=== PATIENT | male | born 1960 | race Caucasian/White ===

== ENCOUNTER 2021-12-07 10:18 | Emergency (ER) | payer OTHER ==
--- OUTSIDE RECORDS SUMMARY | 2021-12-07 10:21 | XMS REPORT | Continuity of Care Document ---
:[address] [facility] Address [address] [place] [address] [address]. [address] [place] [address] Care Team Providers Name Role Phone Otto Mendoza MD Attending Clinician Pcp, Patient Does Not Have A Attending Clinician [phone] Lab, Adc Fam Pob I Attending Clinician Unavailable Guadalupe Green Attending Clinician GUADALUPE CLANCY Attending Clinician Unavailable Caitlin Pa Attending Clinician Leodan Hu PA-C Attending Clinician LEODAN HU Attending Clinician Unavailable Mile Hardy Attending Clinician MILE FARMER Attending Clinician Unavailable Payers Payer Name Policy Type Policy Number Effective Date Expiration Date S ource Problems Condition Condition Condition Status Onset Resolution Last Treating Co mments Source Name Details Category Date Date Treatment Clinician Date Mixed Mixed Disease Active Univers hyperlipid hyperlipid 2-11 it y of emia emia 00:00: [place] 00 [facility] Allergies, Adverse Reactions, Alerts Allergy Allergy Status Severity Reaction(s) Onset Inactive Treating Comm ents Source Name Type Date Date Clinician NO KNOWN Drug Active Univers ALLERGIE Class ity of S [facility] Social History Social Habit Start Date Stop Date Quantity Comments Source Sex Assigned At Uni versity [facility] Exposure to SARS-CoV-2 Yes Un iversity [facility] (event) [facility] Smoking Status Start Date Stop Date Source Unknown if ever smoked Universit y of [facility] Medications Ordered Filled Start Stop Current Ordering Indication Dosage Frequency Signature Comments Components Source Medication Medication Date Date Medication? Clinician (SIG) Name Name omeprazole 2019-02- No TAKE 1 Univ ers 40 mg 03-28 CAPSULE BY ity of capsule 00:00: 00:00 MOUTH ONCE Mickey as 00 :00 DAILY 30 Medical MINUTES Branch BEFORE MORNING MEAL No known No [facility] No [facility] No known No [facility] No known No [facility] No known No Univers medications [facility] Vital Signs Vital Name Observation Time Observation Value Comments Source Systolic blood 2020-03-29 00:41:00 145 mm[Hg] Univer sity [facility] Diastolic blood 2020-03-29 00:41:00 95 mm[facility]Hg[facility] 2020-03-29 00:41:00 75 /min [facility] Body temperature 2020-03-29 00:41:00 36.67 [facility]a [facility] Body height 2020-03-29 00:41:00 157.5 cm [facility] Body weight 2020-03-29 00:41:00 88.451 kg [facility] BMI 2020-03-29 00:41:00 35.67 kg/m2 [facility] Oxygen saturation in 2020-03-29 00:41:00 98 /min [facility] Arterial blood by [facility] Pulse oximetry [place] Procedures Procedure Date / Time Performed Performing Clinician Sour e POCT FLU A AND B 2020-03-28 00:00:00 Caitlin Forrester [facility] (MOLECULAR) [facility] COVID-19 (PCR 2019-08-24 22:29:00 [facility] [place] [facility] Medical Bran h Encounters Start End Encounter Admission Attending Care Care Encounter Source Date/Time Date/Time Type Type Clinicians Facility Department ID 2020-04-14 2020-04-14 Letter LEODAN Mendoza [id number] Univers 00:00:00 00:00:00 (Out) Otto MILLS [id number] i ty of [facility] [id number] Mickey as [phone] [facility] 019 Branch 2020-04-12 2020-04-12 Telephone Pcp, TONJA [id number] Univers 00:00:00 00:00:00 Patient Health [id number] it y of Does Not [place].2.686 [place] Professio [phone] [facility] nal [address] [place] [address] Office [facility] 2020-04-11 2020-04-11 Laboratory Lab, Adc Fam Pob I [facility] [id number] Univers 13:40:01 14:00:01 Only Guadalupe Clancy Health [id number] ity of [place] [id number] Mickey as Professio [phone] [facility] nal [address] [place] [address] Office [facility] 2020-04-11 2020-04-11 Outpatient R FRANCESCO [facility] [id number] Univers 13:40:00 13:40:00 GUADALUPE [facility] 2020-03-30 2020-03-30 Telephone LEODAN Garibay [id number] Univers 00:00:00 00:00:00 Patient GENE [id number] it y of Does Not HOSPITAL 4[place]2.7.2.686 [place] [phone] [address] 2020-03-30 2020-03-30 Telephone Usama [facility] [id number] Univers 00:00:00 00:00:00 [facility] [id number] ity of [place] [id number] Mickey as Professio [phone] [facility] [address] [place] [address] Office [facility] 2020-03-28 2020-03-28 Urgent UsamaCaitlin arnold [facility] [id number] Univers 18:36:04 19:23:55 Leodan Bucio [facility] [id number] ity of [place] 4.2.7.2.686 Mickey as Professio [phone] [facility] nal [address] [place] [address] Office [facility] 2020-03-28 2020-03-28 Outpatient R MIRTHA [facility] [id number] Univers 18:40:00 18:40:00 LEODAN [facility] 2019-08-24 2019-08-27 Laboratory Lab, Adc Fam Pob I [facility] [id number] [facility] 17:29:14 14:39:41 Only Mile Farmer [facility] [id number] [facility] [id number] Mickey as Nevaehio [phone] Ia [facility] [address] [place] [address] One 2019-08-24 2019-08-24 Outpatient R MARLENY [facility] [id number] [facility] 17:40:00 17:40:00 MILE [facility] Results Test Description Test Time Test Comments Results Result Comments Source POCT FLU A AND B (MOLECULAR) 2020-03-29 01:03:00 Test Item Value Reference Range Interpretation Comme nts POCT INFLUENZA A (test code = Neg Negative - Negative 3840) POCT INFLUENZA B (test code = Neg Negative - Negative 3841) JADIEL (test code = JADIEL) accurate development and interpretation of all internal controls Lab Interpretation (test code = Normal 14358-9) [facility]-08-26 22:49:00 Test Item Value Reference Range Interpretation Comments SARS-CoV-2 PCR (test Not Detected Not Detected code = 16320-2) JADIEL (test code = JADIEL) Disclaimer: This test was developed and its performance characteristics determined by [facility]. It has not been cleared or approved by the US Food and Drug Administration (FDA). An Emergency Use Authorization (EUA) application is under review for FDA approval. This test is used for clinical purposes. It should not be regarded as investigational or for research. This laboratory is certified under the Clinical Laboratory Improvement Amendments (CLIA) as qualified to perform high complexity clinical laboratory testing. Not Detected: A negative result does not preclude COVID-19 infection and should not be used as the sole basis for treatment or other patient management decisions. Negative results must be combined with clinical observations, patient history, and epidemiological information. Positive: The results are provided to [facility]/CDC for tracking purposes. Invalid: Please collect a new specimen for repeat patient testing. Lab Interpretation Normal (test code = 28934-3) [facility]
[2021-12-07 10:43] LABS: Absolute Lymphocytes (CBC) 1.9 K/uL (0.7-4.9); Hematocrit 47.8 % (39.6-49.0); Lymphocytes % 30.5 % (15.3-44.8); MCV 87.6 fL (80-100); MPV 8.9 fL (7.6-11.3); RBC Red Blood Cell Count 5.46 M/uL (4.33-5.43)
[2021-12-07] MEDS ORDERED: MORPHINE 4 MG/ML SYR ONE (10:45)
[2021-12-07] MEDS ORDERED: ONDANSETRON 4 MG/2 ML VIAL ONE (10:45)
[2021-12-07 10:48] LABS: Protime INR 0.99
[2021-12-07 10:57] LABS: Potassium 3.7 mmol/L (3.5-5.1)
--- NOTE | 2021-12-07 11:11 | RAD REPORT ---
EXAM DESCRIPTION: RAD - Foot Right 3 View - 12/07/2021 10:57 am CLINICAL HISTORY: PAIN COMPARISON: No comparisons none FINDINGS/IMPRESSION: Lucency in the anterior aspect of the process of the calcaneus is not well asse ssed. Consider CT to exclude fracture dislocation. There is also a thin linear ossific fragment poste rior to the talus on the lateral view. . No malalignment. Calcaneal spurring.
--- NOTE | 2021-12-07 11:13 | RAD REPORT ---
EXAM DESCRIPTION: RAD - Foot Left 3 View - 12/07/2021 10:57 am CLINICAL HISTORY: PAIN COMPARISON: No comparisons FINDINGS/IMPRESSION: No acute fracture. Calcaneal fractures can be difficult to appreciate particula rly if the patient's mechanism of injury has a high risk of fracture. CT could confirm. No malalignme nt. Calcaneal spurring.
--- NOTE | 2021-12-07 11:23 | RAD REPORT ---
EXAM DESCRIPTION: CT - Head C Spine Cap Liseth Santoro - 12/07/2021 11:04 am CLINICAL HISTORY: Trauma, head and neck injury. Chest, abdomen and pelvis pain. fall from ladder COMPARISON: No comparisons TECHNIQUE: CT head without contrast. CT cervical spine without contrast with coronal and sagittal reformatted images. CT chest, abdomen and pelvis with coronal and sagittal reformatted images of the spine. All CT scans are performed using dose optimization technique as appropriate and may include automated exposure control or mA/KV adjustment according to patient size. FINDINGS: CT HEAD WITHOUT CONTRAST: No intracranial hemorrhage, hydrocephalus or extra-axial fluid collection. No acute large vascular te rritory infarct. The paranasal sinuses and mastoids are clear. The calvarium is intact. CT CERVICAL SPINE WITHOUT CONTRAST: No fracture or subluxation. The prevertebral soft tissues are normal in thickness. CT CHEST, ABDOMEN, PELVIS: Thorax: Chest Wall: No abnormal mass Lungs: No acute abnormality. Pleura: No effusions or pneumothorax. Gena/Mediastinum: No lymphadenopathy.Small to moderate hiatal hernia. Fluid in the distal esophagus m ay reflect reflux. Aorta/Pulmonary Arteries: Unremarkable Heart: Normal size. Abdomen/Pelvis: Liver: No acute abnormality or suspicious lesions. Biliary: No biliary ductal dilatation. Stomach: No significant focal abnormality. Duodenum: No significant focal abnormality. Pancreas: No significant abnormality. Spleen: No significant abnormality. Adrenal: No suspicious lesions. Too small to characterize and/or benign appearing renal lesions are n oted. Kidney/ureter: No hydronephrosis. No renal calculi. Retroperitoneum: No retroperitoneal adenopathy. Vascular: No aneurysm. Bowel: No significant focal abnormality. Peritoneum: No ascites or free air. Small fat containing inguinal hernias. Bladder: Grossly unremarkable. Reproductive: No adnexal masses. Bones: No acute fracture. Other: n/a IMPRESSION: 1. No acute intracranial abnormality. 2. No fracture or traumatic malalignment of the cervical spine. 3. No evidence of significant trauma to chest, abdomen, or pelvis. 4. Small to moderate hiatal hernia with fluid in the distal esophagus that may reflect gastroesophage al reflux .
--- NOTE | 2021-12-07 12:20 | RAD REPORT ---
EXAM DESCRIPTION: RAD - Forearm Right - 12/07/2021 12:12 pm CLINICAL HISTORY: PAIN COMPARISON: none FINDINGS/IMPRESSION: No acute fracture. No malalignment. No significant focal degenerative changes.
--- NOTE | 2021-12-07 12:22 | RAD REPORT ---
EXAM DESCRIPTION: RAD - Humerus Right - 12/07/2021 12:12 pm CLINICAL HISTORY: PAIN COMPARISON: No comparisons FINDINGS/IMPRESSION: No acute fracture. No malalignment. No significant focal degenerative changes.
--- NOTE | 2021-12-07 12:54 | RAD REPORT ---
EXAM DESCRIPTION: CT - Foot Right Wo Con - 12/07/2021 12:29 pm CLINICAL HISTORY: fall from 20 ft ladder COMPARISON: No comparisons FINDINGS: Small avulsion fracture off of the posterior process of the talus. No malalignment. Calcan eal spurring. IMPRESSION: Avulsion fracture at the posterior process of the talus. No malalignment of the right fo ot or other fractures identified.
--- NOTE | 2021-12-07 13:00 | RAD REPORT ---
EXAM DESCRIPTION: CT - Foot Left Wo Con - 12/07/2021 12:29 pm CLINICAL HISTORY: fall from 20 ft ladder COMPARISON: Foot Right Wo Con dated 12/07/2021 FINDINGS: Calcaneal spur along the plantar aspect which has a fracture line. No other fractures iden tified. No malalignment. A dorsal aspect calcaneal spur is noted. IMPRESSION: Possible fracture of the patient's plantar aspect calcaneal spur. No other fractures.
--- NOTE | 2021-12-07 13:36 | ER ---
Nurse's Notes [facility] Name: August Parsons Age: 61 yrs Sex: Male : 1960 Arrival Date: 12/07/2021 Time: : Bed 2 Private MD: Diagnosis: Avulsion fracture (chip fracture) of talus;Fracture of calcaneus-fracture of bony spur Presentation: 12/07 10:28 Chief complaint: Patient states: Fell approx 20 feet from ladder, landed on gravel type ph surface, probable LOC, hematoma to back of head, c/o pain to R arm, bilateral heels, worse on L side, states that he was unable to stand afterwards d/t pain in feet, A\T\O x 4 upon arrival to ED, denies N/V. Coronavirus screen: Vaccine status: Patient reports receiving the 1st dose of the Covid vaccine. Ebola Screen: No symptoms or risks identified at this time. Initial Sepsis Screen: Does the patient meet any 2 criteria? No. Patient's initial sepsis screen is negative. Does the patient have a suspected source of infection? No. Patient's initial sepsis screen is negative. Risk Assessment: Do you want to hurt yourself or someone else? Patient reports no desire to harm self or others. Onset of symptoms was December 07, 2021. 10:28 Method Of Arrival: Wheelchair 10:28 Acuity: LANEY 2 10:38 Care prior to arrival: None. Mechanism of Injury: Fall from ladder approximately 20 ph feet. Trauma event details: Injury occurred in the [facility], Injury occurred: at home. Injury occurred: December 07, 2021. Triage Assessment: 10:32 General: Appears in no apparent distress. Behavior is calm, cooperative. Pain: Complains of pain in scalp, right foot, left foot and right arm. Neuro: Level of Consciousness is awake, alert, obeys commands, Oriented to person, place, time, situation. Cardiovascular: Capillary refill < 3 seconds in bilateral fingers Patient's skin is warm and dry. Respiratory: Airway is patent Respiratory effort is even, unlabored, Denies shortness of breath pain with respiration. GI: Patient currently denies abdominal pain, nausea, vomiting. Derm: Skin is healthy with good turgor, Skin is pink, warm \T\ dry. Musculoskeletal: Circulation, motion, and sensation intact. Range of motion: intact in all extremities, Reports pain in bilateral heels. Injury Description: Head injury sustained to hematoma w/ abrasion to back of head, no bleeding. Trauma Activation: Alert Physician: ED Physician; Name: Jeremiah; Notified At: 10:20; Arrived At: 10:21 Physician: General Surgeon; Name: ; Notified At: 10:20; Arrived At: Physician: Radiology; Name: Beverly; Notified At: 10:20; Arrived At: 10:24 Physician: Respiratory; Name: ; Notified At: 10:20; Arrived At: Physician: Lab; Name: ; Notified At: 10:20; Arrived At: Historical: - Allergies: 10:31 No Known Allergies; ph - PMHx: 10:31 Hypertensive disorder; ph - PSHx: 10:31 None; ph - Immunization history:: Adult Immunizations unknown. - Social history:: Smoking status: Patient denies any tobacco usage or history of. - Immunization history: Last tetanus immunization: unknown. - Family history:: not pertinent. - Hospitalizations: : No recent hospitalization is reported. Screenin:37 Abuse screen: Denies threats or abuse. Denies injuries from another. Nutritional ph screening: No deficits noted. Tuberculosis screening: No symptoms or risk factors identified. Fall Risk Fall in past 12 months (25 points). No secondary diagnosis (0 pts). IV access (20 points). Ambulatory Aid- None/Bed Rest/Nurse Assist (0 pts). Gait- Impaired (20 pts.). Mental Status- Oriented to own ability (0 pts). Total Dominguez Fall Scale indicates High Risk Score (45 or more points). Fall prevention measures have been instituted. Side Rails Up X 2 Placed Close to Nursing Station Family Present and informed to notify staff if the need to leave the bedside As available patient and family educated on Fall Prevention Program and Strategies. Primary Survey: 10:35 NO uncontrolled hemorrhage observed. A: The client is awake and alert. The airway is ph patent. Breathing/Chest: Spontaneous respiratory effort, equal unlabored respirations, breath sounds clear bilaterally, regular pattern, symmetrical chest rise and fall. Circulation: No external hemorrhage present. Regular and strong central pulse, skin warm/dry/normal color. Disability Pupils are equal, round, reactive to light and accommodation. Client is alert. Exposure/Environment: All clothing and personal items were removed. Forensic evidence collection is not deemed to be indicated at this time. Items placed in patient belonging bag. There is no evidence of uncontrolled external bleeding. Obvious injury(ies) are noted at this time: hematoma to back of head. 14:00 Reassessment Alertness and Airway: Awake and alert. The airway is patent. Breathing: ph Spontaneous respiratory effort, equal unlabored respirations, breath sounds clear bilaterally, regular pattern with symmetrical chest rise and fall. Circulation: No external hemorrhage noted. Regular and strong central pulse, skin warm/dry/normal color. Disability: Pupils Pupils are equal, round, reactive to light and accomodation. Alert. Secondary Survey: 10:36 HEENT: Head Other hematoma/abrasion to back of head, no bleeding. Gastrointestinal: No ph deficits noted. Musculoskeletal: Reports pain in right foot, left foot and right arm. Injury Description: hematoma to back of head. Injury Description: Abrasion sustained to scalp. Assessment: 10:34 General: Appears in no apparent distress. Behavior is calm, cooperative. Pain: ph Complains of pain in right arm and left foot and right foot and scalp. Neuro: Hong Agitation-Sedation Scale (RASS): 0 - Alert and Calm Level of Consciousness is awake, alert, obeys commands, Oriented to person, place, time, situation, Reports headache. Cardiovascular: Capillary refill < 3 seconds in bilateral fingers Patient's skin is warm and dry. Respiratory: Airway is patent Respiratory effort is even, unlabored, Respiratory pattern is regular, symmetrical, Denies shortness of breath pain with respiration. GI: Patient currently denies abdominal pain, nausea, vomiting. Derm: Skin is pink, warm \T\ dry. Musculoskeletal: Circulation, motion, and sensation intact. Range of motion: intact in all extremities. Injury Description: Head injury sustained to hematoma/abrasion to back of head. 10:53 Reassessment: Patient appears in no apparent distress at this time. Patient and/or ph family updated on plan of care and expected duration. Pain level reassessed. Patient is alert, oriented x 3, equal unlabored respirations, skin warm/dry/pink. Pt taken to CT via stretcher. 11:34 Reassessment: Patient appears in no apparent distress at this time. Patient and/or ph family updated on plan of care and expected duration. Pain level reassessed. Patient is alert, oriented x 3, equal unlabored respirations, skin warm/dry/pink. Pt now c/o pain to R arm and L leg, ERP notified and additional imaging ordered. 13:30 Reassessment: Patient appears in no apparent distress at this time. Patient and/or ph family updated on plan of care and expected duration. Pain level reassessed. Patient is alert, oriented x 3, equal unlabored respirations, skin warm/dry/pink. 14:04 Reassessment: Patient appears in no apparent distress at this time. Patient and/or ph family updated on plan of care and expected duration. Pain level reassessed. Patient is alert, oriented x 3, equal unlabored respirations, skin warm/dry/pink. Pt d/c home. Vital Signs: 10:28 BP 160 / 84; Pulse 75; Resp 19; Temp 97.2; Pulse Ox 97% on R/A; Weight 86.18 kg; Height ph 5 ft. 8 in. (172.72 cm); 11:35 BP 133 / 86; Pulse 71; Resp 14; Pulse Ox 95% on R/A; ph 12:30 BP 137 / 92; Pulse 70; Resp 18; Pulse Ox 98% on R/A; ph 13:30 BP 128 / 87; Pulse 72; Resp 16; Temp 97.9; Pulse Ox 99% on R/A; ph 10:28 Body Mass Index 28.89 (86.18 kg, 172.72 cm) ph [place] Coma Score: 10:37 Eye Response: spontaneous(4). Verbal Response: oriented(5). Motor Response: obeys ph commands(6). Total: 15. 11:35 Eye Response: spontaneous(4). Verbal Response: oriented(5). Motor Response: obeys ph commands(6). Total: 15. 12:30 Eye Response: spontaneous(4). Verbal Response: oriented(5). Motor Response: obeys ph commands(6). Total: 15. 13:30 Eye Response: spontaneous(4). Verbal Response: oriented(5). Motor Response: obeys ph commands(6). Total: 15. Trauma Score (Adult): 10:37 Eye Response: spontaneous(1); Verbal Response: oriented(1); Motor Response: obeys ph commands(2); Systolic BP: > 89 mm Hg(4); Respiratory Rate: 10 to 29 per min(4); Alena Score: 15; Trauma Score: 12 11:35 Eye Response: spontaneous(1); Verbal Response: oriented(1); Motor Response: obeys ph commands(2); Systolic BP: > 89 mm Hg(4); Respiratory Rate: 10 to 29 per min(4); [place] Score: 15; Trauma Score: 12 12:30 Eye Response: spontaneous(1); Verbal Response: oriented(1); Motor Response: obeys ph commands(2); Systolic BP: > 89 mm Hg(4); Respiratory Rate: 10 to 29 per min(4); Alena Score: 15; Trauma Score: 12 13:30 Eye Response: spontaneous(1); Verbal Response: oriented(1); Motor Response: obeys ph commands(2); Systolic BP: > 89 mm Hg(4); Respiratory Rate: 10 to 29 per min(4); [place] Score: 15; Trauma Score: 12 ED Course: 10:23 Patient arrived in ED. eb 10:25 Jarad Daniels MD is Attending Physician. rn 10:27 Meghan Metzger, VAISHNAVI is Primary Nurse. ph 10:31 Triage completed. ph 10:37 Patient maintains SpO2 saturation greater than 95% on room air. Thermoregulation: warm ph blanket given to patient. 10:37 Arm band placed on. ph 10:40 Patient has correct armband on for positive identification. Placed in gown. Bed in low ph position. Call light in reach. Side rails up X2. Client placed on continuous cardiac and pulse oximetry monitoring. NIBP monitoring applied. Door closed. Noise minimized. Warm blanket given. 10:59 XRAY Foot LEFT 3 View In Process Unspecified. EDMS 10:59 XRAY Foot RIGHT 3 View In Process Unspecified. EDMS 11:06 CT Traumagram (Head C Spine CAP W Con) In Process Unspecified. EDMS 11:37 No provider procedures requiring assistance completed. ph 12:14 XRAY Femur LEFT In Process Unspecified. EDMS 12:14 XRAY Humerus RIGHT In Process Unspecified. EDMS 12:14 XRAY Forearm RIGHT In Process Unspecified. EDMS 12:30 Foot Left Wo Con In Process Unspecified. EDMS 12:30 Foot Right Wo Con In Process Unspecified. EDMS 13:34 Arthur Kennedy MD is Referral Physician. rn 14:02 IV discontinued, intact, bleeding controlled, No redness/swelling at site. Pressure ph dressing applied. 14:03 Ortho shoe applied to right foot. left foot. ph Administered Medications: 10:51 Drug: Zofran (Ondansetron) 4 mg Route: IVP; Site: left antecubital; ph 11:34 Follow up: Response: No adverse reaction ph 10:53 Drug: morphine 4 mg Route: IVP; Infused Over: 4 mins; Site: left antecubital; ph 11:34 Follow up: Response: No adverse reaction; Pain is decreased; RASS: Alert and Calm (0) ph Medication: 14:00 VIS not applicable for this client. ph Intake: 14:03 PO: 0ml; Total: 0ml. ph Output: 14:03 Urine: 0ml; Total: 0ml. ph Outcome: 13:35 Discharge ordered by MD. rn 14:00 Discharged to home via wheelchair, with family. ph 14:00 Condition: good 14:00 Discharge instructions given to patient, family, Instructed on discharge instructions, follow up and referral plans. medication usage, Demonstrated understanding of instructions, follow-up care, medications, Prescriptions given X 2. 14:03 Patient's length of stay was not longer than 2 hours. ph 14:04 Patient left the ED. ph 16:46 Patient left the ED. iw Signatures: Dispatcher [employer] Meagan Aiken RN RN iw Nieto, Roman, MD MD rn Hall, Patricia, RN RN ph Diane Trammell Corrections: (The following items were deleted from the chart) 10:40 10:20 Trauma Activation: Alert; ED Physician Jeremiah; Radiology Beverly ph ph
--- NOTE | 2021-12-07 13:36 | EDPHYS ---
Physician Documentation [facility] Name: August Parsons Age: 61 yrs Sex: Male : 1960 Arrival Date: 12/07/2021 Time: : Bed 2 Private MD: ED Physician Jarad Daniels HPI: 12/07 10:30 This 61 yrs old Male presents to ER via Unassigned with complaints of fall from ladder. rn 10:30 Trauma demographics: Location of Injury: The injury occurred outdoors. Mechanism of rn injury: Fall: the patient fell from a ladder approximately approximately 20 feet, and struck dirt. Associated injuries: The patient sustained injury to the head, right heel, left heel. Onset: The symptoms/episode began/occurred just prior to arrival. The patient has not experienced similar symptoms in the past. The patient has not recently seen a physician. Pt reports fall from ladder, approx 18-20 ft, thinks landed on ladder, unknown LOC, reports pain to head, pelvis, feet. . Historical: - Allergies: 10:31 No Known Allergies; ph - PMHx: 10:31 Hypertensive disorder; ph - PSHx: 10:31 None; ph - Immunization history:: Adult Immunizations unknown. - Social history:: Smoking status: Patient denies any tobacco usage or history of. - Immunization history: Last tetanus immunization: unknown. - Family history:: not pertinent. - Hospitalizations: : No recent hospitalization is reported. ROS: 10:30 Constitutional: Negative for fever, chills, and weight loss, Eyes: Negative for injury, rn pain, redness, and discharge, Neck: Negative for injury, pain, and swelling, Cardiovascular: Negative for chest pain, palpitations, and edema, Respiratory: Negative for shortness of breath, cough, wheezing, and pleuritic chest pain, Abdomen/GI: Negative for abdominal pain, nausea, vomiting, diarrhea, and constipation, Back: + injury and back pain MS/Extremity: + pain to both heels Skin: Negative for injury, rash, and discoloration, Neuro: Negative for weakness, numbness, tingling, and seizure. Exam: 10:30 Constitutional: This is a well developed, well nourished patient who is awake, alert, rn and in no acute distress. Head/Face: Normocephalic, + small superficial hematoma back of head, no laceration Eyes: Pupils equal round and reactive to light, extra-ocular motions intact. Lids and lashes normal. Conjunctiva and sclera are non-icteric and not injected. Cornea within normal limits. Periorbital areas with no swelling, redness, or edema. Neck: No midline cervical tenderness, no swelling Chest/axilla: Normal chest wall appearance and motion. Nontender with no deformity. No lesions are appreciated. Cardiovascular: Regular rate and rhythm. No pulse deficits. Respiratory: No increased work of breathing, no retractions or nasal flaring. Abdomen/GI: Soft, non-tender, no ecchymosis Skin: Warm, dry MS/ Extremity: Pulses equal, no cyanosis. Neurovascular intact. Full, normal range of motion. Equal circumference. + bilateral heel pain, no open wounds or significant ecchymosis Neuro: Awake and alert, GCS 15, oriented to person, place, time, and situation. Cranial nerves II-XII grossly intact. Motor strength 5/5 in all extremities. Sensory grossly intact. Vital Signs: 10:28 BP 160 / 84; Pulse 75; Resp 19; Temp 97.2; Pulse Ox 97% on R/A; Weight 86.18 kg; Height ph 5 ft. 8 in. (172.72 cm); 11:35 BP 133 / 86; Pulse 71; Resp 14; Pulse Ox 95% on R/A; ph 12:30 BP 137 / 92; Pulse 70; Resp 18; Pulse Ox 98% on R/A; ph 13:30 BP 128 / 87; Pulse 72; Resp 16; Temp 97.9; Pulse Ox 99% on R/A; ph 10:28 Body Mass Index 28.89 (86.18 kg, 172.72 cm) ph Alena Coma Score: 10:37 Eye Response: spontaneous(4). Verbal Response: oriented(5). Motor Response: obeys ph commands(6). Total: 15. 11:35 Eye Response: spontaneous(4). Verbal Response: oriented(5). Motor Response: obeys ph commands(6). Total: 15. 12:30 Eye Response: spontaneous(4). Verbal Response: oriented(5). Motor Response: obeys ph commands(6). Total: 15. 13:30 Eye Response: spontaneous(4). Verbal Response: oriented(5). Motor Response: obeys ph commands(6). Total: 15. Trauma Score (Adult): 10:37 Eye Response: spontaneous(1); Verbal Response: oriented(1); Motor Response: obeys ph commands(2); Systolic BP: > 89 mm Hg(4); Respiratory Rate: 10 to 29 per min(4); Alena Score: 15; Trauma Score: 12 11:35 Eye Response: spontaneous(1); Verbal Response: oriented(1); Motor Response: obeys ph commands(2); Systolic BP: > 89 mm Hg(4); Respiratory Rate: 10 to 29 per min(4); Alena Score: 15; Trauma Score: 12 12:30 Eye Response: spontaneous(1); Verbal Response: oriented(1); Motor Response: obeys ph commands(2); Systolic BP: > 89 mm Hg(4); Respiratory Rate: 10 to 29 per min(4); Alena Score: 15; Trauma Score: 12 13:30 Eye Response: spontaneous(1); Verbal Response: oriented(1); Motor Response: obeys ph commands(2); Systolic BP: > 89 mm Hg(4); Respiratory Rate: 10 to 29 per min(4); [place] Score: 15; Trauma Score: 12 MDM: 10:25 Patient medically screened. rn 13:32 Differential diagnosis: intra-abdominal injury, closed head injury, cardiac contusion, rn extremity fracture, C spine fracture, T spine fracture, L spine fracture, heel fracture. Data reviewed: vital signs, nurses notes, lab test result(s), radiologic studies, CT scan, plain films, and as a result, I will discharge patient. Counseling: I had a detailed discussion with the patient and/or guardian regarding: the historical points, exam findings, and any diagnostic results supporting the discharge/admit diagnosis, lab results, radiology results, the need for outpatient follow up, to return to the emergency department if symptoms worsen or persist or if there are any questions or concerns that arise at home. Response to treatment: the patient's symptoms have markedly improved after treatment, and as a result, I will discharge patient. Special discussion: I discussed with the patient/guardian in detail that at this point there is no indication for admission to the hospital. It is understood, however, that if the symptoms persist or worsen the patient needs to return immediately for re-evaluation. ED course: + small fracture of bony spur of left calcaneus, + small avulsion fracture of right talus. No other acute traumatic findings on other imaging. Will dc home with return precautions and ortho f/u.. 12/07 10:27 Order name: Basic Metabolic Panel; Complete Time: 11:20 rn 12/07 10:27 Order name: CBC with Diff; Complete Time: 11:20 rn 12/07 10:27 Order name: CT Traumagram (Head C Spine CAP W Con); Complete Time: 12:06 rn 12/07 10:27 Order name: XRAY Foot LEFT 3 View; Complete Time: 11:20 rn 12/07 10:27 Order name: Protime (+inr); Complete Time: 11:20 rn 12/07 10:27 Order name: Ptt, Activated; Complete Time: 11:20 rn 12/07 10:27 Order name: XRAY Foot RIGHT 3 View; Complete Time: 11:20 rn 12/07 11:21 Order name: XRAY Femur LEFT; Complete Time: 13:16 rn 12/07 11:21 Order name: XRAY Humerus RIGHT; Complete Time: 13:16 rn 12/07 11:21 Order name: XRAY Forearm RIGHT; Complete Time: 13:16 rn 12/07 11:28 Order name: Foot Left Wo Con; Complete Time: 13:16 EDMS 12/07 11:28 Order name: Foot Right Wo Con; Complete Time: 13:16 EDMS 12/07 10:27 Order name: Labs collected and sent; Complete Time: 10:41 rn 12/07 10:27 Order name: Cardiac monitoring; Complete Time: 11:34 rn 12/07 10:27 Order name: O2 Sat Monitoring; Complete Time: 10:32 rn 12/07 13:32 Order name: Splint: orthoboot both feet; Complete Time: 13:59 rn Administered Medications: 10:51 Drug: Zofran (Ondansetron) 4 mg Route: IVP; Site: left antecubital; ph 11:34 Follow up: Response: No adverse reaction ph 10:53 Drug: morphine 4 mg Route: IVP; Infused Over: 4 mins; Site: left antecubital; ph 11:34 Follow up: Response: No adverse reaction; Pain is decreased; RASS: Alert and Calm (0) ph Disposition Summary: 12/07/21 13:35 Discharge Ordered Location: Home rn Problem: new rn Symptoms: have improved rn Condition: Stable rn Diagnosis - Avulsion fracture (chip fracture) of talus rn - Fracture of calcaneus - fracture of bony spur rn Followup: rn - With: Arthur Kennedy MD - When: 1 week - Reason: Recheck today's complaints, Re-evaluation by your physician Discharge Instructions: - Discharge Summary Sheet rn - Avulsion Fracture of the Foot rn - Foot Pain rn Forms: - Medication Reconciliation Form rn - Thank You Letter rn - 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
[2021-12-07 14:13] VITALS: BP 128/87; TEMP 97.9; O2SAT 99
== END 2021-12-07 16:46 | disposition home or self-care (01) ==
LOC: ER 10:18
PROC: 2W3TX1Z Immobilization of Left Foot using Splint (ICD-10-PCS; principal; 2021-12-07)
PROC: 2W3SX1Z Immobilization of Right Foot using Splint (ICD-10-PCS; 2021-12-07)
DX: S92.002A Unspecified fracture of left calcaneus, initial encounter for closed fracture (principal); S92.151A Displaced avulsion fracture (chip fracture) of right talus, initial encounter for closed fracture; W11.XXXA Fall on and from ladder, initial encounter; I10 Essential (primary) hypertension
CPT/HCPCS: 85025; 80048; 36415; 85610; 82565; 85730; 70450; 72125; 71260; 73700 ×2; 74177; 73630 ×2; 73090; 73060; 73552; 96375; 96374; 99284; 29515; Q9967; J2405

== ENCOUNTER 2024-02-13 17:15 | Inpatient (IN) | payer OTHER ==
--- OUTSIDE RECORDS SUMMARY | 2024-02-13 17:23 | XMS REPORT | Continuity of Care Document ---
Author Name Unknown Address [address] [facility] [address] [place] [address] [facility] Address [address] [facility] [address] [place] [address] Care Team Providers Care Nutrition Services Worker Name Role Phone SARA RICHARDS Attending Clinician Unavailab MICHELLE Fofaan Attending Clinician Unavailable DAI EASON Attending Clinician Unavailable DEMI Attending Clinician Unavailable LAB90 Attending Clinician Unavailable JOHN RODRIGUES Attending Clinician Unavailable Otto Mendoza MD Attending Clinician [phone] Pcp, Patient Does Not Have A Attending Clinician Lab, Adc Fam Pob I Attending Clinician Unavailab Guadalupe Milton Attending Clinician [phone] GUADALUPE MAYA Attending Clinician Unavailable Caitlin Pa Attending Clinician + [phone] Leodan Hu PA-C Attending Clinician [phone] LEODAN HU Attending Clinician Unavailable Mile Hardy Attending Clinician [phone] MILE SRIVASTAVA Attending Clinician Unavailable Payers Payer Name Policy Type Policy Number Effective Date Expirati on Date Source [employer]ET[employer]IT[employer]/P PO 2 [id number] 2022 00:00:00 Problems Condition Name Condition Details Condition Category Status Onset Date Resolution Date Last Treatment Date Treating Clinician Comments Source Primary hypertensi on Primary hypertensi on Disease Active 2021-02 00:00: 00 Cheryl Echeverria - Jaimiea l Gastroesop hageal reflux disease without esophagiti s Gastroesop hageal reflux disease without esophagiti s Disease Active 2021-02 216 00:00: 00 Cheryl awad Mixed hyperlipid emia Mixed hyperlipid emia Disease Active 03-28 00:00: 00 [facility] Allergies, Adverse Reactions, Alerts Allergy Name Allergy Type Status Severity Reaction(s) Onset Date Inactive Date Treating Clinician Comments Source NO KNOWN ALLERGIE S Drug Class Active [facility] Social History Social Habit Start Date Stop Date Quantity Comments Source Sexual orientation Vicki cleary Juwan - External Exposure to SARS-CoV-2 (event) Yes [facility] Alcoholic beverage intake 2023-09-03 00:00:00 2023-09-03 00:00:00 .29 /d Cheryl Echeverria - External History of Social function 2022-12-23 00:00:00 2022-12-23 00:00:00 Cheryl Echeverria - External Alcohol intake 2022-12-23 00:00:00 2022-12-23 00:00:00 .29 /d Cheryl Echeverria - External Sex [birth year] at 1960 00:00:00 1960 00:00:00 Cheryl Echeverria - External Smoking Status Start Date Stop Date Source Unknown if [facility] Never smoked tobacco Cheryl Echeverria - External Medications Ordered Medication Name Filled Medication Name Start Date Stop Date Current Medication? Ordering Clinician Indication Dosage Frequency Signature (SIG) Comments Components Source PEG-KCl-NaC l-NaSulf-Na Asc-C (MOVIPREP) 100 g oral Recon Soln 09-02 00:00: 00 Yes Instructio ns provided to patient. Follow instructio ns provided by provider.. Cheryl awad Losartan Potassium (COZAAR) 100 MG oral Tablet 04-01 00:00: 00 Yes [id number] 100mg QD Take 1 tablet (100 mg total) by mouth daily. Cheryl awad Atorvastati n Calcium 20 MG oral Tablet 04-01 00:00: 00 Yes [id number] 20mg QD Take 1 tablet (20 mg total) by mouth daily. Cheryl awad Pantoprazol e Sodium 40 MG oral Tablet Delayed Response 2-15 00:00: 00 Yes [id number] 40mg QD Take 1 tablet (40 mg total) by mouth daily. Cheryl awad Pantoprazol e Sodium 40 MG oral Tablet Delayed Response 2021-02 2-16 00:00: 00 Yes [id number] 40mg Take 1 tablet (40 mg total) by mouth daily Cheryl awad Losartan Potassium 100 MG oral Tablet 2021-02 2-16 00:00: 00 Yes [id number] 100mg Take 1 tablet (100 mg total) by mouth daily Cheryl awad Losartan Potassium 100 MG oral Tablet 2021-02 1-01 00:00: 00 01-30 00:00 :00 No 100mg Take 100 mg by mouth daily Cheryl awad Pantoprazol e Sodium 40 MG oral Tablet Delayed Response 2021-02 0-05 00:00: 00 01-30 00:00 :00 No 40mg Take 40 mg by mouth daily Cheryl awad omeprazole 40 mg capsule 2019-02 1-30 00:00: 00 03-28 00:00 :00 No TAKE 1 CAPSULE BY MOUTH ONCE DAILY 30 MINUTES BEFORE MORNING MEAL [facility] No known medications No Un meg [facility] No known medications No Un meg [facility] No known medications No Un meg [facility] No known medications No Un meg [facility] Immunizations Ordered Immunization Name Filled Immunization Name Date Status Comments Source Influenza Virus Vaccine, age 6 months and up 2022-01-30 00:00:00 Completed Cheryl Smith External Influenza Virus Vaccine, age 6 months and up Unknown Completed Cheryl Lord Covid-19 Vaccine Moderna (Spikevax), Mrna-lnp, Catalino Protein, Pf Unknown Completed Cheryl Lord Influenza Virus Vaccine, Quad, Egg Free Unknown Completed Cheryl Lord Tdap- (Boostrix, Adacel) Unknown Completed Cheryl Lord Influenza, Injectable, Mdck, Quadrivalent With Preservative Unknown Completed Cheryl Seybold - External Influenza Virus Vaccine, age 6 months and up Unknown Completed Cheryl Najeraold - External Covid-19 Vaccine Moderna (Spikevax), Mrna-lnp, Catalino Protein, Pf Unknown Completed Cheryl Seybold - External Influenza Virus Vaccine, Quad, Egg Free Unknown Completed Cherylyoel Najeraold - External Tdap- (Boostrix, Adacel) Unknown Completed Cherylyoel Najeraold - External Influenza, Injectable, Mdck, Quadrivalent With Preservative Unknown Completed Cherylyoel Najeraold - External Vital Signs Vital Name Observation Time Observation Value Comments S ource Systolic blood pressure 2023-09-03 19:08:00 152 mm[Hg] Cheryl Donaldybo ld - External Diastolic blood pressure 2023-09-03 19:08:00 90 mm[Hg] Cheryl Donaldybo ld - External Heart rate 2023-09-03 19:08:00 58 /min Kelse y Seybold - External Body temperature 2023-09-03 19:04:00 36.56 Naila Cheryl Seybold - External Respiratory rate 2023-09-03 19:04:00 18 /min Cheryl Seybold - External Body height 2023-09-03 19:04:00 162.6 cm Lenora ey Seybold - External Body weight 2023-09-03 19:04:00 84.823 kg Lenora ey Seybold - External BMI 2023-09-03 19:04:00 32.10 kg/m2 Lenora ey Seybold - External Systolic blood pressure 2022-12-23 15:31:00 124 mm[Hg] Cheryl Donaldybo ld - External Diastolic blood pressure 2022-12-23 15:31:00 80 mm[Hg] Cheryl Donaldybo ld - External Heart rate 2022-12-23 15:31:00 68 /min Kelse y Seybold - External Body temperature 2022-12-23 15:31:00 36.72 Naila Cheryl Seybold - External Respiratory rate 2022-12-23 15:31:00 18 /min Cheryl Seybold - External Body height 2022-12-23 15:31:00 162.6 cm Lenora ey Seybold - External Body weight 2022-12-23 15:31:00 90.379 kg Lenora ey Seybold - External BMI 2022-12-23 15:31:00 34.20 kg/m2 Lenora Echeverria - External Oxygen saturation in Arterial blood by Pulse oximetry 2022-12-23 15:31:00 97 /min Cheryl Lucas ld - External Systolic blood pressure 2022-01-30 21:04:00 110 mm[Hg] Cheryl Lucas ld - External Diastolic blood pressure 2022-01-30 21:04:00 70 mm[Hg] Cheryl Lucas ld - External Heart rate 2022-01-30 20:34:00 77 /min Patrick Echeverria - External Body temperature 2022-01-30 20:34:00 36.06 Naila Cheryl Echeverria - External Respiratory rate 2022-01-30 20:34:00 16 /min Cheryl Echeverria - External Body height 2022-01-30 20:34:00 165.1 cm Lenora elizondo Seybold - External Body weight 2022-01-30 20:34:00 90.719 kg Lenora elizondo Seybold - External BMI 2022-01-30 20:34:00 33.28 kg/m2 Lenora elizondo Seybold - External Systolic blood pressure 2020-03-29 00:41:00 145 mm[Hg] [facility] Diastolic blood pressure 2020-03-29 00:41:00 95 mm[Hg] [facility] Heart rate 2020-03-29 00:41:00 75 /min [facility] 2020-03-29 00:41:00 36.67 Naila [facility] Body height 2020-03-29 00:41:00 157.5 cm [facility] Body weight 2020-03-29 00:41:00 88.451 kg [facility] BMI 2020-03-29 00:41:00 35.67 kg/m2 [facility] Oxygen saturation in Arterial blood by Pulse oximetry 2020-03-29 00:41:00 98 /min [facility] Procedures Procedure Date / Time Performed Performing Clinicia n Source POCT FLU A AND B (MOLECULAR) 2020-03-28 00:00:00 Caitlin Forrester [facility] COVID-19 (PCR MOLECULAR TESTING) 2019-08-24 22:29:00 Sara Goddard [facility] Encounters Start Date/Time End Date/Time Encounter Type Admission Type Attending [facility] Care Department Encounter ID Source 2024-01-01 00:00:00 2024-01-01 00:00:00 Outpatient SARA RICHARDS [id number] [facility] 2023-10-21 07:00:00 2023-10-21 07:00:00 Outpatient ARIANA MICHELLEJanes SANCHEZ [id number] [facility] 2023-10-11 00:00:00 2023-10-11 00:00:[address] [id number] [facility] 2023-09-28 00:00:00 2023-09-28 00:00:00 Outpatient SARA RICHARDS [id number] [facility] 2023-09-03 14:40:00 2023-09-03 14:40:00 Outpatient ARIANA MICHELLEJanes SANCHEZ [id number] [facility] 2023-04-16 15:00:00 2023-04-16 15:00:00 Outpatient JENARO, DAI CHERYL SANCHEZ [id number] [facility] 2023-04-01 00:00:00 2023-04-01 00:00:00 Outpatient SARA RICHARDS [id number] [facility] 2023-03-30 00:00:00 2023-03-30 00:00:00 Outpatient SARA RICHARDS [id number] [facility] 2023-01-22 09:30:00 2023-01-22 09:30:00 Outpatient SARA RICHARDS [id number] [facility] 2023-01-22 00:00:00 2023-01-22 00:00:00 Outpatient SARA RICHARDS [id number] [facility] 2022-12-25 00:00:00 2022-12-25 00:00:00 Outpatient SARA RICHARDS [id number] [facility] 2022-12-25 00:00:00 2022-12-25 00:00:00 Outpatient DEMI SANCHEZ [id number] Cheryl Echeverria 2022-12-25 00:00:00 2022-12-25 00:00:00 Outpatient DEMI SANCHEZ [id number] Cheryl Echeverria 2022-12-23 10:25:00 2022-12-23 10:25:00 Outpatient LABTrey SANCHEZ [id number] [facility]yl [facility] 2022-12-23 09:30:00 2022-12-23 09:30:00 Outpatient SARA RICHARDS [id number] [facility] 2022-07-15 00:00:00 2022-07-15 00:00:00 Outpatient JOHN RODRIGUES [id number] Cheryl Echeverria 2022-02-27 16:00:00 2022-02-27 16:00:00 Outpatient JOHN RODRIGUES [id number] [facility] 2022-02-03 00:00:00 2022-02-03 00:00:00 Outpatient PREZAJOHN Estrada [id number] [facility] 2022-02-03 00:00:00 2022-02-03 00:00:00 Outpatient JOHN RODRIGUES [id number] [facility] 2022-02-02 08:05:00 2022-02-02 08:05:00 Outpatient LABTrey SANCHEZ [id number] [facility] 2022-01-30 14:30:00 2022-01-30 14:30:00 Outpatient PREZASJOHN [id number] [facility] 2020-04-14 00:00:00 2020-04-14 00:00:00 Letter (Out) Otto Mendoza [facility] [id number] [facility] 2020-04-12 00:00:00 2020-04-12 00:00:00 Telephone Pcp, Patient Does Not Have A [facility] [address] [facility] [id number] [facility] 2020-04-11 13:40:01 2020-04-11 14:00:01 Laboratory Only Lab, Adc Fam Pob I Guadalupe Maya [facility] [id number] [facility] 2020-04-11 13:40:00 2020-04-11 13:40:00 Outpatient GUADALUPE ETSEVEZ [facility] [id number] [facility] 2020-03-30 00:00:00 2020-03-30 00:00:00 Telephone Pcp, Patient Does Not Have A [facility] [id number] [facility] 2020-03-30 00:00:00 2020-03-30 00:00:00 Telephone Caitlin Forrester [facility] [id number] [facility] 2020-03-28 18:36:04 2020-03-28 19:23:55 Urgent Care Caitlin Forrester [facility] [id number] [facility] 2020-03-28 18:40:00 2020-03-28 18:40:00 Outpatient LEODAN MARTINEZ [facility] [id number] [facility] 2019-08-24 17:29:14 2019-08-27 14:39:41 Laboratory Only Lab, Adc Fam Pob Janes Mile Srivastava [facility] [id number] [facility] 2019-08-24 17:40:00 2019-08-24 17:40:00 Outpatient R MILE SRIVASTAVA [facility] [id number] [facility] Results Test Description Test Time Test Comments Results Result Co mments Source [facility]08[facility]26 22:49:00* Test Item Value Reference Range Interpretation Comme nts SARS-CoV-2 PCR (test code = 14165-7) Not Detected Not Detected JADIEL (test code = JADIEL) Disclaimer: This t est was developed and its performance characteristics determined by [facility]. It has not been cleared or approved [...] specimen for repeat patient testing. Lab Interpretation (test code = 52311-2) Normal [facility]
[2024-02-13] MEDS ORDERED: ONDANSETRON 4 MG/2 ML VIAL ONE (18:33)
[2024-02-13] MEDS ORDERED: FAMOTIDINE 20 MG/2 ML VIAL IV ONE (18:34)
[2024-02-13] MEDS ORDERED: NA CHLORIDE 0.9% 1,000 ML ONE (18:34)
[2024-02-13] MEDS ORDERED: KETOROLAC 30 MG/ML INJ ONE (18:34)
--- NOTE | 2024-02-13 18:41 | RAD REPORT ---
Abdomen Exam Limited: 02/13/2024 6:13 PM CLINICAL HISTORY: ABD PAIN STUDY: Limited right upper quadrant ultrasound of abdomen. COMPARISON: None. FINDINGS: Liver: Within normal limits. Bile ducts: No intrahepatic or extrahepatic biliary ductal dilatation. Common bile duct measures 2 mm. Gallbladder: Cholelithiasis is present. The gallbladder wall is borderline thickened at 4 mm. The gal lbladder is distended. A positive sonographic Peter sign was reported. IMPRESSION: Cholelithiasis with distended gallbladder, borderline gallbladder wall thickening, and positive sonog raphic Peter's sign is concerning for acute cholecystitis.
--- NOTE | 2024-02-13 18:56 | RAD REPORT ---
EXAM: Chest Single View HISTORY: PAIN COMPARISON: None. FINDINGS: LUNGS/PLEURA: The lungs are clear. No pleural effusions or pneumothorax. No pulmonary edema. MEDIASTINUM: The mediastinal silhouette is within normal limits. CARDIAC: The cardiac silhouette is within normal limits. UPPER ABDOMEN: No significant abnormality. BONES: No acute abnormality. LINES/TUBES/OTHER: N/A IMPRESSION: No evidence of acute cardiopulmonary disease.
[2024-02-13 18:58] LABS: Absolute Basophils 0.1 K/uL (0-0.5); Absolute Lymphocytes (CBC) 1.1 K/uL (0.7-4.9); Absolute Monocytes 0.8 K/uL (0.1-1.3); Absolute Neutrophil 13.2 K/uL (1.8-8.0); Basophils % 0.6 % (0-1.3); Eosinophils % 0.2 % (0-4.4); Hematocrit 44.7 % (39.6-49.0); Hemoglobin 15.4 g/dL (13.6-17.9); Lymphocytes % 7.4 % (15.3-44.8); MCH 30.4 pg (27.0-35.0); MCHC 34.4 g/dL (32.0-36.0); MCV 88.3 fL (80-100); MPV 8.8 fL (7.6-11.3); Monocytes % 5.3 % (3.3-12.3); Neutrophils % 86.5 % (41.7-73.7); Platelets 180 thou/uL (152-406); RBC Red Blood Cell Count 5.07 M/uL (4.33-5.43); Red Cell Distribution Width 13.9 % (12.1-15.2)
[2024-02-13 19:10] LABS: Specific Gravity 1.013 (1.005-1.030); Sqamous Epithelial None Seen /HPF (None Seen); Transitional Epithelial <5 /HPF (None Seen); Urine Bacteria <20 /HPF (<20); Urine Bilirubin NEGATIVE (Negative); Urine Blood Negative (Negative); Urine Clarity Extremely Turbid (Clear); Urine Color Light-Yellow (Yellow); Urine Culture Reflex Order NOT NEEDED; Urine Glucose NEGATIVE (Negative); Urine Ketones NEGATIVE (Negative); Urine Microscopic Reflex YN ORDER UMIC; Urine Mucus Slight /HPF (None Seen); Urine Nitrite NEGATIVE (Negative); Urine Protein NEGATIVE (Negative); Urine RBC <5 /HPF (None Seen); Urine Urobilinogen Normal (Normal); Urine WBC None Seen /HPF (<5); Urine pH 8.5 (5.0-7.0)
[2024-02-13 19:20] LABS: Albumin 3.4 g/dL (3.4-5.0); Albumin/Globulin Ratio 0.9 (1.1-1.8); Anion Gap 8.6 mEq/L (5.0-15.0); Bilirubin Total 1.6 mg/dL (0.2-1.0); Globulin 3.7 g/dL (2.3-3.5); Potassium 3.6 mEq/L (3.5-5.1); Protein, Total 7.1 g/dL (6.4-8.2); Troponin High Sensitivity 4.5 pg/mL (<58.9)
--- NOTE | 2024-02-13 19:52 | EDPHYS ---
Physician Documentation [facility] Name: August Parsons Age: 64 yrs Sex: Male : 1960 Arrival Date: 02/13/2024 Time: 17:15 Bed 4 Private MD: ED Physician Jarad Daniels HPI: 02/12 17:52 This 64 yrs old Male presents to ER via Ambulatory with complaints of Vomiting. kb 17:52 Pt is a 64 year old male who presents for upper abd pain, nausea and vomiting that kb started last night. States he drank a beer, then developed chest pressure which moved down to upper abdomen. States he went to [place] [facility] last night and they told him he had a hiatal hernia. States the pain was better when he was discharged, but is now back. Denies chest pain/pressure since last night. States all pain is in his abdomen. . Historical: - Allergies: 17:45 No Known Allergies; tm6 - PMHx: 17:45 Hypertensive disorder; tm6 17:45 Gastroesophageal reflux disease; tm6 - PSHx: 17:45 None; tm6 - Immunization history:: Flu vaccine is not up to date. - Infectious Disease History:: Denies. - Social history:: Smoking status: Patient denies any tobacco usage or history of. ROS: 17:52 Constitutional: As per HPI kb Exam: 17:52 Constitutional: This is a well developed, well nourished patient who is awake, alert, kb and in no acute distress. Head/Face: Normocephalic, atraumatic. ENT: Moist Mucous membranes Cardiovascular: Regular rate Respiratory: Respirations even and unlabored. No increased work of breathing. Talking in full sentences Skin: Warm, dry with normal turgor. Normal color. MS/ Extremity: Pulses equal, no cyanosis. Neurovascular intact. Full, normal range of motion. Neuro: Awake and alert, GCS 15, oriented to person, place, time, and situation. 17:52 Abdomen/GI: Inspection: abdomen appears normal, Bowel sounds: normal, Palpation: soft, in all quadrants, mild abdominal tenderness, in the epigastric area and right upper quadrant, moderate abdominal tenderness, in the right lower quadrant, 21:19 ECG was reviewed by the Attending Physician. kb Vital Signs: 17:42 BP 161 / 112; Pulse 97; Resp 18; Temp 98.7(O); Pulse Ox 97% on R/A; MAP 125 mmHg; tm6 Weight 85.73 kg; Height 5 ft. 2 in. ; Pain 7/10; 18:52 BP 144 / 87; Pulse 80; Resp 17; Pulse Ox 98% ; jj7 21:10 BP 127 / 74; Pulse 74; Resp 18; Temp 99.5; Pulse Ox 97% ; Pain 6/10; bm8 17:42 Body Mass Index 34.57 (85.73 kg, 157.48 cm) tm6 17:42 Pain Scale: Adult tm6 21:10 Pain Scale: Adult bm8 Alena Coma Score: 21:10 Eye Response: spontaneous(4). Motor Response: obeys commands(6). Verbal Response: bm8 oriented(5). Total: 15. MDM: 17:27 Medical Screening Exam initiated kb 17:54 Data reviewed: vital signs, nurses notes. External Records Reviewed: Outside ED record: Labs and CT reports from [place] [facility] reviewed. CBC, CMP, troponin, bnp all wnl. CT CAP shows hiatal hernia, but otherwise nothing acute. . 19:50 Differential diagnosis: Nonspecific abd pain, cholecystitis, pancreatitis, viral kb gastroenteritis, cholelithiasis. Consideration of Admission/Observation Patient was admitted/placed on observation. Escalation of care including admission/observation considered. Management of patient was discussed with the following: Hospitalist: Dr Epperson accepts pt for admission. Senior It Security Analyst: Dr Saba accepts pt for consult. wants MRCP in AM and antibiotics started. Counseling: I had a detailed discussion with the patient and/or guardian regarding the historical points, exam findings, and any diagnostic results supporting the discharge/admit diagnosis, lab results, radiology results, the need for further work-up and treatment in the hospital. 02/12 17:46 Order name: CBC with Diff; Complete Time: 21:38 kb 02/12 17:46 Order name: CMP; Complete Time: 19:27 kb 02/12 17:46 Order name: Lipase; Complete Time: 19:27 kb 02/12 17:46 Order name: Urinalysis w/ reflexes; Complete Time: 19:14 kb 02/12 17:46 Order name: Troponin HS; Complete Time: 19:27 kb 02/12 19:44 Order name: Blood Culture Adult (2) kb 02/12 19:44 Order name: Lactate w/ 2H reflex if indic.; Complete Time: 21:38 kb 02/12 19:44 Order name: Protime (+inr); Complete Time: 21:17 kb 02/12 19:44 Order name: Ptt, Activated; Complete Time: 21:19 kb 02/12 20:28 Order name: Basic Metabolic Panel EDAZ 02/12 20:28 Order name: Basic Metabolic Panel EDAZ 02/12 20:28 Order name: CBC with Automated Diff EDMS 02/12 20:28 Order name: CBC with Automated Diff EDMS 02/12 20:28 Order name: Liver (Hepatic) Function EDMS 02/12 20:28 Order name: Liver (Hepatic) Function EDMS 02/12 21:32 Order name: CBC Smear Scan; Complete Time: 21:38 EDMS 02/12 17:46 Order name: US Abdomen Limited; Complete Time: 18:41 kb 02/12 17:46 Order name: XRAY Chest (1 view); Complete Time: 18:59 kb 02/12 20:30 Order name: Cholangiogram EDAZ 02/12 17:46 Order name: EKG; Complete Time: 17:47 kb 02/12 20:28 Order name: CONS Physician Consult EDAZ 02/12 17:46 Order name: IV Saline Lock; Complete Time: 18:51 kb 02/12 17:46 Order name: Labs collected and sent; Complete Time: 18:51 kb 02/12 17:46 Order name: EKG - Nurse/Tech; Complete Time: 20:52 kb EC:19 Rate is 72 beats/min. Rhythm is regular. QRS [place] is Normal. IN interval is normal at kb 154 msec. QRS interval is normal at 86 msec. QT interval is normal at 451 msec. Administered Medications: 18:51 Drug: Famotidine IVP 20 mg IVP once; dilute with 10 mL 0.9% NaCl; give over 2 minutes jj7 Route: IVP; Site: left antecubital; 21:08 Follow up: Response: No adverse reaction bm8 18:51 Drug: TORadol - Ketorolac IVP 15 mg IVP once Route: IVP; Site: left antecubital; jj7 21:09 Follow up: Response: No adverse reaction bm8 18:51 Drug: Ondansetron IVP 4 mg IVP once; over 2 minutes Route: IVP; Site: left antecubital; jj7 21:09 Follow up: Response: No adverse reaction bm8 18:51 Drug: NS 0.9% IV 1000 ml IV at 1 bolus Per protocol; to be given as a bolus over 60 jj7 minutes Route: IV; Rate: 1 bolus; Site: left antecubital; 21:08 Follow up: Response: No adverse reaction; IV Status: Completed infusion; IV Intake: bm8 1000ml 21:08 Drug: Piperacillin-Tazobactam IVPB 3.375 grams IVPB once over 60 mins; (mix in NS 100 bm8 mL), give after blood cultures obtained Route: IVPB; Infused Over: 60 mins; Site: left antecubital; 21:13 Follow up: Response: No adverse reaction; IV Status: Infusion continued upon admission bm8 21:23 Follow up: Response: No adverse reaction dd2 Disposition: 02/13 07:07 Co-signature as Attending Physician, Jarad Daniels MD I reviewed the patient's care rn provided by the Advanced Practice Provider and agree with the diagnosis and treatment plan. Disposition Summary: 02/13/24 19:52 Hospitalization Ordered Notes: Hospitalization Status: Observation kb Provider: Chan Epperson Location: Telemetry/MedSurg (observation) kb Condition: Stable kb Problem: new kb Symptoms: are unchanged kb Bed/Room Type: Standard Room Assignment: 405(02/13/24 20:33) lg3 Diagnosis - Acute cholecystitis kb - Other cholelithiasis without obstruction kb Forms: - Medication Reconciliation Form kb - SBAR form kb - Leadership Thank You Letter kb Signatures: Dispatcher [employer] Sharmila Hagen, MARYBEL-C ENVIRONMENTAL ENGINEER-Ckb Jarad Daniels MD MD rn Able, Lacie RN RN lg3 Cezar Wadsworth RN RN jj7 Pancho Vazquez RN RN tm6 Tommie Vasquez RN RN bm8 VIKKI MATOS RN dd2 Corrections: (The following items were deleted from the chart) 02/12 20:33 19:52 kb lg3
--- NOTE | 2024-02-13 19:52 | ER ---
Nurse's Notes [facility] Name: August Parsons Age: 64 yrs Sex: Male : 1960 Arrival Date: 02/13/2024 Time: 17:15 Bed 4 Private MD: Diagnosis: Acute cholecystitis;Other cholelithiasis without obstruction Presentation: 02/12 17:42 Chief complaint: Patient states: last night drank one beer and then had pressure in tm6 chest and stomach pain, went to [place] [facility]. Today still feels stomach pain and stomach pressure. RLQ pain upon palpation. Coronavirus screen: Client denies travel out of the [place] in the last 14 days. Ebola Screen: Patient negative for fever greater than or equal to 101.5 degrees Fahrenheit, and additional compatible Ebola Virus Disease symptoms Patient denies exposure to infectious person. Patient denies travel to an Ebola-affected area in the 21 days before illness onset. No symptoms or risks identified at this time. Initial Sepsis Screen: Does the patient meet any 2 criteria? No. Patient's initial sepsis screen is negative. Does the patient have a suspected source of infection? No. Patient's initial sepsis screen is negative. Risk Assessment: Do you want to hurt yourself or someone else? Patient reports no desire to harm self or others. Onset of symptoms was February 12, 2024. 17:42 Method Of Arrival: Ambulatory tm6 17:42 Acuity: LANEY 3 tm6 Triage Assessment: 17:45 General: Appears in no apparent distress. uncomfortable, Behavior is calm, cooperative. tm6 Pain: Complains of pain in right lower quadrant Pain currently is 7 out of 10 on a pain scale. Pain began 1 day ago. EENT: No signs and/or symptoms were reported regarding the EENT system. Neuro: Level of Consciousness is awake, alert, obeys commands, Oriented to person, place, time, situation. Cardiovascular: Patient's skin is warm and dry. Respiratory: Airway is patent Respiratory effort is even, unlabored, Respiratory pattern is regular, symmetrical. GI: Abdomen is tender to palpation in right lower quadrant Reports lower abdominal pain, nausea, vomiting. : No signs and/or symptoms were reported regarding the genitourinary system. Derm: No signs and/or symptoms reported regarding the dermatologic system. Musculoskeletal: No signs and/or symptoms reported regarding the musculoskeletal system. Historical: - Allergies: 17:45 No Known Allergies; tm6 - PMHx: 17:45 Hypertensive disorder; tm6 17:45 Gastroesophageal reflux disease; tm6 - PSHx: 17:45 None; tm6 - Immunization history:: Flu vaccine is not up to date. - Infectious Disease History:: Denies. - Social history:: Smoking status: Patient denies any tobacco usage or history of. Screenin:30 [facility] ED Fall Risk Assessment (Adult) History of falling in the last 3 months, jj7 including since admission No falls in past 3 months (0 pts) Confusion or Disorientation No (0 pts) Intoxicated or Sedated No (0 pts) Impaired Gait No (0 pts) Mobility Assist Device Used No (0 pt) Altered Elimination No (0 pt) Score/Fall Risk Level 0 - 2 = Low Risk Oriented to surroundings, Maintained a safe environment, Educated pt \T\ family on fall prevention, incl call for assistance when getting out of bed, Assessed \T\ reinforced patient's understanding of fall precautions. Abuse screen: Denies threats or abuse. Nutritional screening: No deficits noted. Tuberculosis screening: No symptoms or risk factors identified. Assessment: 18:30 General: Appears in no apparent distress. comfortable, Behavior is calm, cooperative, jj7 appropriate for age. Pain: Denies pain. Complains of pain in chest and abdomen. GI: Abdomen is tender to palpation in epigastric area, right upper quadrant and right lower quadrant Guarding noted in right upper quadrant and right lower quadrant Reports lower abdominal pain, epigastric pain. 21:10 Reassessment: Patient appears in no apparent distress at this time. Patient and/or bm8 family updated on plan of care and expected duration. Pain level reassessed. Patient is alert, oriented x 3, equal unlabored respirations, skin warm/dry/pink. Patient states feeling better. Patient states symptoms have improved. General: Appears in no apparent distress. comfortable, Behavior is calm, cooperative, appropriate for age. Pain: Complains of pain in right lower quadrant Pain currently is 6 out of 10 on a pain scale. Neuro: No deficits noted. Level of Consciousness is awake, alert, obeys commands, Oriented to person, place, time, situation, Appropriate for age. Cardiovascular: Denies chest pain, Heart tones S1 S2 present Capillary refill < 3 seconds in bilateral fingers Patient's skin is warm and dry. Rhythm is sinus rhythm. Respiratory: Airway is patent Respiratory effort is even, unlabored, Respiratory pattern is regular, symmetrical, Breath sounds are clear bilaterally. GI: Abdomen is flat, non-distended, Bowel sounds present X 4 quads. Abdomen is tender to palpation in right lower quadrant Guarding noted in right lower quadrant hurts worse with pressure Reports lower abdominal pain, Pain is 6 out of 10 on a pain scale. : No signs and/or symptoms were reported regarding the genitourinary system. EENT: No signs and/or symptoms were reported regarding the EENT system. Derm: No signs and/or symptoms reported regarding the dermatologic system. Musculoskeletal: No signs and/or symptoms reported regarding the musculoskeletal system. Vital Signs: 17:42 BP 161 / 112; Pulse 97; Resp 18; Temp 98.7(O); Pulse Ox 97% on R/A; MAP 125 mmHg; tm6 Weight 85.73 kg; Height 5 ft. 2 in. ; Pain 7/10; 18:52 BP 144 / 87; Pulse 80; Resp 17; Pulse Ox 98% ; jj7 21:10 BP 127 / 74; Pulse 74; Resp 18; Temp 99.5; Pulse Ox 97% ; Pain 6/10; bm8 17:42 Body Mass Index 34.57 (85.73 kg, 157.48 cm) tm6 17:42 Pain Scale: Adult tm6 21:10 Pain Scale: Adult bm8 Alena Coma Score: 21:10 Eye Response: spontaneous(4). Motor Response: obeys commands(6). Verbal Response: bm8 oriented(5). Total: 15. ED Course: 17:17 Patient arrived in ED. mr 17:27 Sharmila Mar[facility]cal [facility]C [facility]. kb 17:27 Jarad Daniels MD is Attending Physician. kb 17:45 Triage completed. tm6 17:45 Arm band placed on right wrist. tm6 18:30 Patient has correct armband on for positive identification. Bed in low position. Call jj7 light in reach. Adult w/ patient. Provided Education on: use of call nolan. Warm blanket given. 18:34 US Abdomen Limited In Process Unspecified. EDMS 18:45 Inserted saline lock: 20 gauge in left antecubital area, using aseptic technique. Blood jj7 collected. Flushed with 10 mL NS. 18:48 XRAY Chest (1 view) In Process Unspecified. EDMS 18:50 CBC with Diff Sent. jj7 18:50 CMP Sent. jj7 18:50 Lipase Sent. jj7 18:51 Urinalysis w/ reflexes Sent. jj7 18:59 Ace Mendes, RN is Primary Nurse. bp 19:02 Troponin HS Sent. jj7 19:02 CMP Sent. jj7 19:02 Lipase Sent. jj7 19:02 Urinalysis w/ reflexes Sent. jj7 19:07 Report given to woodrow king. jj7 19:51 Chan Epperson MD is Hospitalizing Provider. kb 20:45 First set of blood cultures drawn by me. vk 20:53 Lactate w/ 2H reflex if indic. Sent. vk 20:54 Protime (+inr) Sent. vk 20:54 Ptt, Activated Sent. vk 20:54 Blood Culture Adult (2) Sent. vk 20:54 Initial lab(s) drawn, by me, sent to lab. vk 21:10 No provider procedures requiring assistance completed. Patient admitted, IV remains in bm8 place. Administered Medications: 18:51 Drug: Famotidine IVP 20 mg IVP once; dilute with 10 mL 0.9% NaCl; give over 2 minutes jj7 Route: IVP; Site: left antecubital; 21:08 Follow up: Response: No adverse reaction bm8 18:51 Drug: TORadol - Ketorolac IVP 15 mg IVP once Route: IVP; Site: left antecubital; jj7 21:09 Follow up: Response: No adverse reaction bm8 18:51 Drug: Ondansetron IVP 4 mg IVP once; over 2 minutes Route: IVP; Site: left antecubital; jj7 21:09 Follow up: Response: No adverse reaction bm8 18:51 Drug: NS 0.9% IV 1000 ml IV at 1 bolus Per protocol; to be given as a bolus over 60 jj7 minutes Route: IV; Rate: 1 bolus; Site: left antecubital; 21:08 Follow up: Response: No adverse reaction; IV Status: Completed infusion; IV Intake: bm8 1000ml 21:08 Drug: Piperacillin-Tazobactam IVPB 3.375 grams IVPB once over 60 mins; (mix in NS 100 bm8 mL), give after blood cultures obtained Route: IVPB; Infused Over: 60 mins; Site: left antecubital; 21:13 Follow up: Response: No adverse reaction; IV Status: Infusion continued upon admission bm8 21:23 Follow up: Response: No adverse reaction dd2 Medication: 18:30 VIS not applicable for this client. jj7 Intake: 21:08 IV: 1000ml; Total: 1000ml. bm8 Outcome: 19:52 Decision to Hospitalize by Provider. kb 21:10 Admitted to Tele accompanied by nurse, via stretcher, room 405, with chart, bm8 21:10 Condition: stable 21:10 Instructed on the need for admit, Demonstrated understanding of follow-up care, 21:52 Patient left the ED. bm8 Signatures: Dispatcher [employer] EDMS Sharmila Mariscal, ACID PUMPER-C ACID PUMPER-Ckb Yandy Grimes, Reg Reg mr Ace Mendes, RN RN Cezar Gupta RN RN jj7 Pancho Vazquez RN RN tm6 Nicolasa Powers Brad, RN RN bm8 VIKKI MATOS, RN RN dd2
[2024-02-13] MEDS ORDERED: MORPHINE 2 MG/ML SYR IV PRN (20:23)
[2024-02-13] MEDS: PIPER TAZO 4.5 GM in NA CHLORIDE 0.9% 100 ML IV SCH (20:26)
--- NOTE | 2024-02-13 20:31 | P.HP ---
Certification for Inpatient With expected LOS: >2 Midnights Practitioner: I am a practitioner with admitting privileges, knowledge of patient current condition, hospital course, and medical plan of care. Services: Services provided to patient in accordance with Admission requirements found in Title 42 Section 412.3 of the Code of Federal Regulations Patient History Date of Service: 02/13/24 Reason for admission: Acute cholecystitis History of Present Illness: Patient is 64 years of age started complaining of chest pressure yesterday went to [facility] urgency room was discharged apparently had a full body CAT scan pain got worse and migrated to his right upper quadrant. With nausea vomiting into the emergency room diagnosed with acute cholecystitis with a positive Peter sign and had an ultrasound done in the emergency room Allergies No Known Allergies Allergy (Unverified 12/07/21 11:21) - Past Medical/Surgical History -: Hypertension -: GERD Past Surgical History: Reviewed- Non-Contributory - Social History Smoking Status: Never smoker Review of Systems 10-point ROS is otherwise unremarkable Physical Examination - Vital Signs Temperature: 97 F Blood Pressure: 144/87 Pulse: 80 Respirations: 17 Pulse Ox (%): 88 - Physical Exam General: Alert, In no apparent distress, Oriented x3 HEENT: Atraumatic Neck: Supple Respiratory: Clear to auscultation bilaterally, Normal air movement Cardiovascular: No edema, Normal pulses, Regular rate/rhythm Gastrointestinal: Normal bowel sounds, Tenderness (Positive Peter sign's tenderness in the right upper quadrant) Musculoskeletal: No clubbing, No swelling Integumentary: No rashes, No breakdown Neurological: Normal gait, Normal speech, Normal strength at 5/5 x4 extr - Studies Laboratory Data (last 24 hrs) 02/13/24 02/13/24 18:45 18:45 WBC 15.30 H Hgb 15.4 Hct 44.7 Plt Count 180 Sodium 135 L Potassium 3.6 BUN 9 Creatinine 0.92 Glucose 118 H Total Bilirubin 1.6 H AST 21 ALT 30 Alkaline Phosphatase 85 Lipase 23 Assessment and Plan - Problems (Diagnosis) (1) Cholecystitis, acute Current Visit: Yes Status: Acute Plan: Patient is 64 years of age no prior history of any gallstones admitted with right upper quadrant pain diagnosed with acute cholecystitis by ultrasound white count is mildly elevated chest x-ray is negative plan to admit to the floor MRCP scheduled tomorrow start on Zosyn Dr. Saba has been consulted ultrasound report Cholelithiasis with distended gallbladder, borderline gallbladder wall thickening, and positive sonographic Peter's sign is concerning for acute cholecystitis. N.p.o. except ice chips otherwise stable for surgery - Advance Directives Does patient have a Living Will: No Does patient have a Durable POA for Healthcare: No
[2024-02-13] MEDS ORDERED: NA CHLORIDE 0.9% 100 ML ONE (21:04)
[2024-02-13] MEDS ORDERED: PIPERACIL/TAZO 3.375 GM VIAL IV ONE (21:05)
[2024-02-13 21:16] LABS: PT Prothrombin Time 13.1 SECONDS (9.4-12.5); Protime INR 1.18
[2024-02-13 21:31] LABS: Blood Morphology Comment NOT SEEN (NOT SEEN); Platelet Estimate ADEQ; White Blood Cell Scan OK (OK)
[2024-02-13] MEDS: NA CHLORIDE 0.9% 1,000 ML IV SCH (22:48)
[2024-02-13 23:43] VITALS: BMI 34.5
[2024-02-14 06:07] LABS: Absolute Lymphocytes (CBC) 1.1 K/uL (0.7-4.9); Absolute Monocytes 0.8 K/uL (0.1-1.3); Absolute Neutrophil 11.6 K/uL (1.8-8.0); Basophils % 0.4 % (0-1.3); Hematocrit 41.8 % (39.6-49.0); Hemoglobin 14.3 g/dL (13.6-17.9); Lymphocytes % 7.8 % (15.3-44.8); MCH 30.6 pg (27.0-35.0); MCHC 34.3 g/dL (32.0-36.0); MCV 89.2 fL (80-100); MPV 8.8 fL (7.6-11.3); Monocytes % 5.9 % (3.3-12.3); Neutrophils % 85.9 % (41.7-73.7); Platelets 165 thou/uL (152-406); RBC Red Blood Cell Count 4.68 M/uL (4.33-5.43); Red Cell Distribution Width 13.4 % (12.1-15.2)
[2024-02-14 06:32] LABS: Albumin 2.8 g/dL (3.4-5.0); Albumin/Globulin Ratio 0.8 (1.1-1.8); Anion Gap 9.8 mEq/L (5.0-15.0); Bilirubin Direct 0.4 mg/dL (0-0.2); Bilirubin Indirect, Calculated 1.7 mg/dL (0.2-0.8); Bilirubin Total 2.1 mg/dL (0.2-1.0); Globulin 3.5 g/dL (2.3-3.5); Potassium 3.8 mEq/L (3.5-5.1); Protein, Total 6.3 g/dL (6.4-8.2)
--- NOTE | 2024-02-14 09:30 | RAD REPORT ---
EXAMINATION: MR CHOLANGIOGRAM CLINICAL INDICATION: Male, 64 years old. admitted with cholecystitis TECHNIQUE: Multiplanar, multisequence MR imaging of the abdomen without intravenous contrast, and wit h specific attention to the biliary system. Unless otherwise specified, incidental findings do not require dedicated imaging follow-up. 3D MIP reconstruction performed. COMPARISON: 02/13/2024 FINDINGS: GALLBLADDER: Extensive cholelithiasis with small amount of pericholecystic fluid and mild to moderate inflammation in the right upper quadrant. Gallbladder wall is also thickened mildly. BILE DUCTS: No biliary ductal dilatation. LIVER: Normal in size, contour, and signal without evidence of fatty infiltration or iron deposition. No focal lesion. PANCREAS: Normal signal. No mass, ductal dilation, or андрей-pancreatic fluid. LYMPH NODES: No lymphadenopathy. ADDITIONAL FINDINGS: Hiatal hernia, moderate in size. IMPRESSION: Cholelithiasis with findings suspicious for acute cholecystitis. No common duct stone nor pathologic biliary tree dilatation.
--- NOTE | 2024-02-14 11:09 | EKG ---
Test Date: 2024-02-13 Test Time: 20:28:01 Phototypesetting Equipment Monitor: ALLYSON MEASUREMENT RESULTS: Intervals: Rate: 72 NV: 154 QRSD: 86 QT: 412 QTc: 451 Hopkins: P: 59 NV: 154 QRS: 36 T: 18 INTERPRETIVE STATEMENTS: Normal sinus rhythm Normal ECG No previous ECG available for comparison Electronically Signed On 02-14-24 11:08:25 TONSORIAL ARTIST by Malcom Childers
[2024-02-14] MEDS ORDERED: propofoL 200 MG/20 ML VIAL IV ONE (13:08)
[2024-02-14] MEDS ORDERED: MIDAZOLAM HCL 2 MG/2 ML INJ ONE (13:08)
[2024-02-14] MEDS ORDERED: FENTANYL CITR 100 MCG/2 ML ONE ×2 (13:08→14:57)
[2024-02-14] MEDS ORDERED: LIDOCAINE 2% MPF 5 ML VIAL ONE (13:09)
[2024-02-14] MEDS ORDERED: ROCURONIUM 50 MG/5 ML VIAL IV ONE (13:09)
[2024-02-14] MEDS: SUGAMMADEX SODIUM 200 MG/2 ML VIAL IV ONE (13:26)
[2024-02-14] MEDS ORDERED: ONDANSETRON 4 MG/2 ML VIAL ONE (13:27)
--- NOTE | 2024-02-14 13:47 | P.PN ---
Subjective Date of Service: 02/14/24 Chief Complaint: Acute cholecystitis Patient is complaining of abdominal pain although with palpation in the right upper quadrant. He denies any nausea or vomiting. No recorded fever. Physical Examination - Vital Signs Temperature: 98.0 F Blood Pressure: 117/64 Pulse: 75 Respirations: 20 Pulse Ox (%): 95 - Studies Laboratory Data (last 24 hrs) 02/13/24 02/13/24 18:45 18:45 WBC 15.30 H Hgb 15.4 Hct 44.7 Plt Count 180 Sodium 135 L Potassium 3.6 BUN 9 Creatinine 0.92 Glucose 118 H Total Bilirubin 1.6 H AST 21 ALT 30 Alkaline Phosphatase 85 Lipase 23 Assessment And Plan - Plan Physical examination General: Alert and oriented x3, NAD, HEENT: Conjunctiva not pale, anicteric sclera Neck: Supple, no elevated JVD Heart: Heart sounds 1 and 2 normal, regular rhythm, normal rate, no pedal edema Lungs: Clear to auscultation bilaterally, adequate breath sounds bilaterally, no rhonchi or crackles. Abdomen: Soft, RUQ tenderness with palpation, normal bowel sounds. Extremities: No tenderness, no deformity Skin: Normal skin turgor, no rash, no nodules or ulcers. Neuro: No focal motor deficit. Normal speech. Psychiatry: Normal mood, no agitation. Diagnosis Acute calculus cholecystitis Elevated bilirubin Plan MRCP result reviewed-no choledocholithiasis. General surgery Dr. Saba consulted who is planning lap cholecystectomy Empiric antibiotics Analgesics as needed IV hydration. Monitor LFT.
[2024-02-14] MEDS ORDERED: dexAMETHasone 10 MG/ML VIAL ONE (14:19)
[2024-02-14] MEDS ORDERED: KETOROLAC 30 MG/ML INJ ONE (14:29)
--- NOTE | 2024-02-14 14:32 | CON ---
Date of Consultation: 02/14/2024 Diagnoses: Acute cholecystitis, symptomatic cholelithiasis. History Of Present Illness: This is a case of a 64-year-old patient, who came to us with epigastric right upper quadrant pain radiating to the back associated with nausea and vomiting. The patient lincoln t to a local ER, and was sent home. The pain did not improve, came to our ER, diagnosed with acute c holecystitis, symptomatic cholelithiasis, and a surgical consult was obtained for cholecystectomy. T he pain got worse. He says he had been eating a lot over the last few days since the holidays more t garnica usual. He does not recall any pain like this before. He denies any dysuria, hematuria, hematoch ezia, or melena. He denies any recent traveling out of the country. He denies any family member sic k at home. Denies any shortness of breath or any chest pain. Review of Systems: Ten points otherwise unremarkable. Past Medical History: Include hypertension and gastric reflux. Past Surgical History: None. Social History: He does not smoke. He does not drink alcohol. Allergies: NONE. Family History: Noncontributory. Physical Examination: Vital Signs: Reviewed. General: Patient is awake and alert. HEENT: Pupils are equal and reactive. Anicteric. Neck: Supple. Chest: Clear. Abdomen: Epigastric right upper quadrant pain with Peter sign positive. Rectal: Deferred. Breasts: Deferred. Extremities: Good capillary refill. Laboratory Data: WBC count is 15.3 with hemoglobin of 15.4, and platelets of 180. INR is 1.18. Pot assium 3.6, creatinine is 0.92, total bilirubin of 1.6, lipase 23. Ultrasound of the gallbladder int erpreted by Dr. Loera as cholelithiasis with distended gallbladder and gallbladder wall thickening with Peter sign positive. MRCP shows cholelithiasis with findings suspicious for acute cholecystitis. No common duct stone or pathological biliary dilatation. Assessment: 64-year-old patient with acute cholecystitis, symptomatic cholelithiasis, intractable ri ght upper quadrant pain. The benefits, alternatives, and risks of laparoscopic, possible open cholec ystectomy fully explained which include, but not limited to, infection, bleeding, damage to adjacent structures, anesthesia complication, choledocholithiasis, bile leak, pancreatitis, RI, and even . He also understands this may not relieve any symptoms. He might need more than one surgical inter vention. He understood and signed a consent. The surgery was explained to him in [place] and Gunjan BHAT/MARTIN Voice ID: [id number] Report ID: [id number]
--- NOTE | 2024-02-14 15:19 | P.BOP ---
Preoperative diagnosis: Acute cholecystitis, symptomatic cholelithiasis, RUQ abd pain Postoperative diagnosis: same Primary procedure: Laparoscopic cholecystectomy Estimated blood loss: <10cc Specimen: gb Findings: as above Anesthesia: General Complications: None Drain(s): ELMER drain Transferred to: Recovery Room Condition: Good
[2024-02-14] MEDS: HYDROCODONE/APAP 5/325 MG TAB PO PRN (21:24)
[2024-02-15 06:12] LABS: Absolute Basophils 0.1 K/uL (0-0.5); Absolute Lymphocytes (CBC) 0.8 K/uL (0.7-4.9); Absolute Monocytes 0.5 K/uL (0.1-1.3); Absolute Neutrophil 14.7 K/uL (1.8-8.0); Basophils % 0.5 % (0-1.3); Hematocrit 41.4 % (39.6-49.0); Hemoglobin 14.3 g/dL (13.6-17.9); Lymphocytes % 5.2 % (15.3-44.8); MCH 30.6 pg (27.0-35.0); MCHC 34.5 g/dL (32.0-36.0); MCV 88.9 fL (80-100); MPV 9.1 fL (7.6-11.3); Monocytes % 3.2 % (3.3-12.3); Neutrophils % 91.1 % (41.7-73.7); Nucleated Red Blood Cells % 0.1 % (0-0); Platelets 176 thou/uL (152-406); RBC Red Blood Cell Count 4.66 M/uL (4.33-5.43); Red Cell Distribution Width 13.9 % (12.1-15.2)
[2024-02-15] MEDS: FAMOTIDINE 20 MG TAB ONE (06:24)
[2024-02-15 06:29] LABS: Albumin 2.8 g/dL (3.4-5.0); Albumin/Globulin Ratio 0.7 (1.1-1.8); Anion Gap 8.1 mEq/L (5.0-15.0); Bilirubin Total 1.2 mg/dL (0.2-1.0); Globulin 4.2 g/dL (2.3-3.5); Potassium 4.1 mEq/L (3.5-5.1)
[2024-02-15] MEDS: ONDANSETRON 4 MG/2 ML VIAL IV PRN (06:29)
[2024-02-15] MEDS: FAMOTIDINE 20 MG TAB PO SCH (06:29)
[2024-02-15] MEDS: LOSARTAN POTASSIUM 50 MG TABLET PO SCH (09:52)
[2024-02-15 10:25] LABS: White Blood Cell Scan OK (OK)
[2024-02-15 10:26] LABS: Blood Morphology Comment NOT SEEN (NOT SEEN); Platelet Estimate ADEQ
--- NOTE | 2024-02-15 10:44 | P.PN ---
Date of Service: 02/15/24 Subjective: abdomen feels sore but improved compared to how he felt prior to admission reports some increased acid reflux this morning denies nausea/vomiting tolerating diet without issues afebrile ROS: 10 point ROS as noted above, otherwise negative Physical Exam: GEN: Alert, oriented, NAD CV: Regular rate and rhythm, no edema Pulm: Nonlabored respirations on room air, clear bilaterally ABD: soft, mild tenderness, surgical dressing in place, ELMER drain in place Neuro: Normal speech, normal affect Problem List: Acute Calculus Cholecystitis s/p lap alesha (02/13) Elevated Biliruben, improving Hypertension GERD on admission, presents with RUQ pain, associated with nausea/vomiting MRCP (02/13): extensive cholelithiasis with small amount of pericholecystic fluid, and mild-moderate inflammation RUQ. +Mildly thickened gallbladder wall Dr. Saba, general surgeon consulted s/p lap alesha (02/13); [address] continue empiric zosyn (02/12-) blood cx (02/12): NGTD continue IV fluids pain control LFTs improving leukocytosis slightly worse 02/14, otherwise feeling improvement Discussed with surgery, will monitor for another 24 hours. Anticipate dc tomorrow with oral abx if leukoctosis improves continue home losartan, pepcid VTE: SCD Code: Full Dispo: Home, ~1 day pending leukocytosis improves Time Spent Managing Pts Care (In Minutes): 55
--- NOTE | 2024-02-15 11:15 | P.PN ---
Subjective Date of Service: 02/15/24 Chief Complaint: Acute cholecystitis Subjective: Ambulating, Improving Review of Systems Respiratory: Unremarkable Cardiovascular: Unremarkable Gastrointestinal: Nausea (no), Vomiting (no), As per HPI Genitourinary: Unremarkable Physical Examination - Vital Signs Temperature: 97.7 F Blood Pressure: 108/57 Pulse: 73 Respirations: 18 Pulse Ox (%): 18 - Physical Exam General: Alert, In no apparent distress, Oriented x3, Cooperative HEENT: Normocephalic, PERRLA Neck: Supple Respiratory: Normal air movement Gastrointestinal: Soft and benign, No rebound, No guarding, Other (ELMER serosanguineous) Musculoskeletal: No erythema, No tenderness, No warmth Integumentary: No rashes, No breakdown Neurological: Normal speech Assessment And Plan - Plan cont abx IS OOB When he get d/h, f/u at office in a week Record ELMER output q24h
[2024-02-16 06:39] LABS: Absolute Basophils 0.1 K/uL (0-0.5); Absolute Lymphocytes (CBC) 1.3 K/uL (0.7-4.9); Absolute Monocytes 0.7 K/uL (0.1-1.3); Absolute Neutrophil 9.4 K/uL (1.8-8.0); Basophils % 0.6 % (0-1.3); Hemoglobin 12.6 g/dL (13.6-17.9); MCH 30.8 pg (27.0-35.0); MCV 90.5 fL (80-100); Monocytes % 6.3 % (3.3-12.3); Neutrophils % 82.1 % (41.7-73.7); Nucleated Red Blood Cells % 0.2 % (0-0); Platelets 172 thou/uL (152-406); RBC Red Blood Cell Count 4.09 M/uL (4.33-5.43); Red Cell Distribution Width 14.2 % (12.1-15.2)
[2024-02-16 06:57] LABS: Albumin 2.3 g/dL (3.4-5.0); Albumin/Globulin Ratio 0.6 (1.1-1.8); Bilirubin Total 0.9 mg/dL (0.2-1.0); Globulin 3.9 g/dL (2.3-3.5); Magnesium 2.2 mg/dL (1.6-2.4); Protein, Total 6.2 g/dL (6.4-8.2)
[2024-02-16 08:29] VITALS: BP 142/78; TEMP 97.8
--- NOTE | 2024-02-16 09:00 | P.DS ---
Admission Date: 02/13/24 Discharge Date: 02/16/24 Disposition: ROUTINE DISCHARGE Reason for Admission: Acute cholecystitis Consultations: General surgery - Dr. Saba Brief History of Present Illness: 64 yo M, PMH: Hypertension, GERD Patient started complaining of chest pressure yesterday went to [place] urgency room was discharged apparently had a full body CAT scan pain got worse and migrated to his right upper quadrant. With nausea vomiting into the emergency room diagnosed with acute cholecystitis with a positive Peter sign and had an ultrasound done in the emergency room Hospital Course: Problem List: Acute Calculus Cholecystitis s/p lap alesha (02/13) Elevated Biliruben, improving Hypertension GERD Physician discharge instructions: Patient presented to the emergency department with right upper quadrant abdominal pain associated with nausea and vomiting secondary to acute cholecystitis. Abdominal ultrasound noted cholelithiasis with distended gallbladder, borderline gallbladder wall thickening. MRCP done 02/13 noted extensive cholelithiasis with small amount of pericholecystic fluid, and mild-moderate inflammation RUQ. Patient was evaluated by Dr. Saba, general surgeon, and underwent lap cholecystectomy on 02/13 and had 1 ELMER drain placed. Advised patient to follow up with Dr. Saba in office in ~1 week for further management and ELMER drain removal. He received empiric zosyn while hospitalized and is to complete 7 more days of oral augmentin on discharge. Patient was feeling better, abdominal pain improved, nausea/vomiting resolved, afebrile > 24 hours, leukocytosis improving, and was deemed stable for discharge. Patient ambulating and tolerating regular diet on day of discharge without issues. LFTs were noted to be mildly elevated on admission, secondary to acute cholecystitis and improved with time post-operatively. LFTs on discharge: (T. Bili 0.9, AST 40, ALT 60) Medications: Tylenol #3 20 pills as needed for pain Augmentin 875 mg twice daily for 7 days Follow up: PCP 3-[address] Saba in office next week Please call to schedule / confirm appointments No heavy lifting > 10 lbs for 4-6 weeks. Okay to shower with running water. Do not submerge wound underwater. Okay to return to work once cleared by Dr. Saba at follow up appointment. Physical Exam: GEN: Alert, oriented, NAD CV: Regular rate and rhythm, no edema Pulm: Nonlabored respirations on room air, clear bilaterally ABD: soft, surgical dressing in place, ELMER drain in place Neuro: Normal speech, normal affect Vital Signs/Physical Exam: Temp Pulse Resp BP Pulse Ox 97.8 F 67 14 142/78 H 96 02/16/24 08:00 02/16/24 08:00 02/16/24 08:00 02/16/24 08:00 02/16/24 08:00 Laboratory Data at Discharge: WBC 11.40 thou/uL (4.3-10.9) H 02/16/24 05:57 Hgb 12.6 g/dL (13.6-17.9) L D 02/16/24 05:57 Hct 37.0 % (39.6-49.0) L 02/16/24 05:57 Plt Count 172 thou/uL (152-406) 02/16/24 05:57 PT 13.1 SECONDS (9.4-12.5) H 02/13/24 20:45 INR 1.18 02/13/24 20:45 APTT 28.7 SECONDS (24.3-36.9) 02/13/24 20:45 Sodium 136 mEq/L (136-145) 02/16/24 05:57 Potassium 4.0 mEq/L (3.5-5.1) 02/16/24 05:57 BUN 15 mg/dL (7-18) 02/16/24 05:57 Creatinine 1.00 mg/dL (0.70-1.30) 02/16/24 05:57 Glucose 116 mg/dL (74-106) H 02/16/24 05:57 Magnesium 2.2 mg/dL (1.6-2.4) 02/16/24 05:57 Total Bilirubin 0.9 mg/dL (0.2-1.0) 02/16/24 05:57 AST 40 U/L (15-37) H 02/16/24 05:57 ALT 60 U/L (16-61) 02/16/24 05:57 Alkaline Phosphatase 76 U/L (45-117) 02/16/24 05:57 Lipase 23 U/L (13-75) 02/13/24 18:45 Home Medications: Losartan Potassium 100 mg PO DAILY 02/14/24 Amox/Clavulanate [Augmentin 875-125 Tab] 1 each PO BID 7 Days #14 tab 02/16/24 Codeine/APAP [Tylenol W/Codeine #3 tab] 1 tab PO Q6HP PRN #20 tab 02/16/24 New Medications: Codeine/APAP [Tylenol W/Codeine #3 tab] 1 tab PO Q6HP PRN #20 tab PRN Reason: Pain Amox/Clavulanate [Augmentin 875-125 Tab] 1 each PO BID 7 Days #14 tab Physician Discharge Instructions: Physician discharge instructions: Patient presented to the emergency department with right upper quadrant abdominal pain associated with nausea and vomiting secondary to acute cholecystitis. Abdominal ultrasound noted cholelithiasis with distended gallbladder, borderline gallbladder wall thickening. MRCP done 02/13 noted extensive cholelithiasis with small amount of pericholecystic fluid, and mild-moderate inflammation RUQ. Patient was evaluated by Dr. Saba, general surgeon, and underwent lap cholecystectomy on 02/13 and had 1 ELMER drain placed. Advised patient to follow up with Dr. Saba in office in ~1 week for further management and ELMER drain removal. He received empiric zosyn while hospitalized and is to complete 7 more days of oral augmentin on discharge. Patient was feeling better, abdominal pain improved, nausea/vomiting resolved, afebrile > 24 hours, leukocytosis improving, and was deemed stable for discharge. Patient ambulating and tolerating regular diet on day of discharge without issues. LFTs were noted to be mildly elevated on admission, secondary to acute cholecystitis and improved with time post-operatively. LFTs on discharge: (T. Bili 0.9, AST 40, ALT 60) Medications: Tylenol #3 20 pills as needed for pain Augmentin 875 mg twice daily for 7 days Follow up: PCP 3-[address] Saba in office next week Please call to schedule / confirm appointments No heavy lifting > 10 lbs for 4-6 weeks. Okay to shower with running water. Do not submerge wound underwater. Okay to return to work once cleared by Dr. Saba at follow up appointment. Followup: Arnie Ceron DO [Primary Care Provider] - Time spent managing pt's care (in minutes): 45
[2024-02-16 09:59] VITALS: O2SAT 96
--- NOTE | 2024-02-23 12:55 | OP ---
Surgeon: Daniel Saba MD Preoperative Diagnoses: Acute cholecystitis. Symptomatic cholelithiasis. Right upper quadrant abdo kenny pain. Postoperative Diagnoses: Acute cholecystitis. Symptomatic cholelithiasis. Right upper quadrant abd ominal pain. Procedure: Laparoscopic cholecystectomy. Estimated Blood Loss: Less than 10 cc. Specimen: Gallbladder. Findings: Inflamed gallbladder. Anesthesia: General plus local. Complications: None. Drains: ELMER #10. Indications: This is the case of a male, who came to us with above diagnoses. Fully explained the b enefits, alternatives, and risks of laparoscopic, possible open cholecystectomy, which include, but n ot limited to, infection, bleeding, damage to adjacent structures, anesthesia complication, choledoch olithiasis, bile leak, pancreatitis, NV, and even . He also understands this may not relieve an y symptoms. He might need more than one surgical intervention. He understood, signed a consent. Description Of Procedure: Patient was brought to the operating room, placed in supine position. Ane sthesia was induced without complication. Abdominal area was prepped and draped in usual sterile fas hion. Marcaine 0.5% was injected for local anesthetic followed by sharp incision of the skin. Incis ion was carried down to fascia, which was opened under direct vision. Peritoneum was encountered, op ened under direct vision. Vicryl #1 placed inside of the fascia. Maria Del Rosario trocar was carefully introd uced. Pneumoperitoneum was obtained. I placed Maria Del Rosario trocar under direct visualization, obtaining p neumoperitoneum. At that moment, I proceeded to put three more trocars, 5 mm each one of them, one i n the epigastric area, two in the right upper quadrant using same technique which consisted of local anesthetic, sharp incision of the skin, and introduction of the trocars under direct vision. This al lowed me to visualize the area of the gallbladder. It was inflamed and distended, so we have to defl ate that gallbladder under direct visualization. Then, I put a grasper in the fundus of the gallblad so, another grasper in the infundibulum, retracting the gallbladder in the inferolateral fashion exp osing the triangle of Calot, obtaining critical view. Cystic duct and cystic artery were clearly iso lated, freed circumferentially, and a connection between those and the gallbladder were clearly ident ified. I proceeded to ligate those by using at least 3 clips proximal, 1 clip distal, ligation in th e middle. Same was done with the cystic artery. No bile leak. No bleeding. The gallbladder was re moved from liver using Bovie cauterizer and removed from abdominal cavity using EndoCatch through the umbilical incision. The area was inspected once again. Due to the overall swelling in that region, I proceeded to left a ELMER drain exiting to one of the trocar site and securing that with 3-0 nylon. No bleeding. No bowel leak. Clips were intact. At that moment, I proceeded to remove the trocars u nder direct vision, deflated pneumoperitoneum, closed the fascia with #1 Vicryl, irrigated subcutaneo us tissue, closed that with 3-0 chromic and the skin approximated. Sponge counts and instrument coun ts correct. Patient tolerated the procedure well. Patient sent to Recovery in stable condition. PERLITA/MARTIN Voice ID: [id number] Report ID: [id number]
== END 2024-02-16 11:17 | disposition home or self-care (01) | DRG 419 ==
LOC: ER 17:15 → ERHOLD 20:23 → 4TH 21:38
PROVIDERS: ADMIT Internal Medicine Sleep Medicine; ATTEND Hospitalist
PROC: 0FT44ZZ Resection of Gallbladder, Percutaneous Endoscopic Approach (ICD-10-PCS; principal; 2024-02-14 19:45)
DX: K80.00 Calculus of gallbladder with acute cholecystitis without obstruction (principal); I10 Essential (primary) hypertension; K21.9 Gastro-esophageal reflux disease without esophagitis; R79.1 Abnormal coagulation profile
CPT/HCPCS: 36415; 71045; 74181; 76705; 80048; 80053; 80076; 81001; 83605; 83690; 83735; 84484; 85025; 85610; 85730; 87040; 88304; 93005; 94010; 96361; 96374; 96375; 99285; J1100; J2003; J2250; J2405; J2543; J2704; J3010; J7030